=== PATIENT | male | born 1980 | race Caucasian/White ===

== ENCOUNTER 2016-08-30 13:48 | Emergency (ER) | payer OTHER ==
[~2016-08-30] VITALS: Ht 182.9 cm; Wt 98.6 kg
[2016-08-30] MEDS ORDERED: ERYTHROMYCIN O3.5 GM RIGHT EYE (17:21)
[2016-08-30] MEDS ORDERED: TRAMADOL HCL50 MG PO (17:21)
[2016-08-30 18:09] VITALS: BP 114/75
== END 2016-08-30 18:10 | disposition home or self-care (01) ==
LOC: EME 13:48
DX: S05.01XA Injury of conjunctiva and corneal abrasion without foreign body, right eye, initial encounter (principal)
CPT/HCPCS: 99281; 99284